=== PATIENT | male | born 1995 | race African-American/Black ===

== ENCOUNTER 2020-09-30 05:34 | Emergency (ER) | payer BC, SELFPAY ==
--- NOTE | ~2020-09-30 | XR_ITS ---
EXAMINATION: XR ANKLE, RIGHT CLINICAL INFORMATION: Ankle pain COMPARISON: None TECHNIQUE: AP, lateral, and mortise views of the right ankle. FINDINGS: There is an oblique fracture of the distal fibular diaphysis; inferior extent of the fracture line is at the level of the tibial plafond. There is slight lateral and posterior displacement of the distal fragment. There is mild widening of the medial clear space. Possible nondisplaced posterior malleolus fracture in the lateral view. There is prominent lateral soft tissue swelling. XR/XR ankle RT min 3V IMPRESSION: Slightly displaced oblique fracture of the distal fibular diaphysis. Mild widening of the medial clear space suggesting ligamentous injury. Questionable nondisplaced posterior malleolus fracture. Prominent lateral soft tissue swelling.
[2020-09-30 05:58] VITALS: BP 137/74; PULSE 79; RESP 16; O2SAT 99; BMI 26.7
--- NOTE | 2020-09-30 06:18 | ED.LOWEXIN ---
HPI - Extremity Injury (Lower) General Chief Complaint: Extremity Injury, Lower Stated Complaint: foot pain Time Seen by Provider: 09/30/20 06:15 History of Present Illness HPI Narrative: Patient is 25 years old patient twisted his right ankle. Complaining of pain localized to the lateral aspect of the ankle. Denies any head injury. No nausea no vomiting. No systemic complaints. Patient from home. Related Data Previous Rx's Medication Instructions Recorded ibuprofen 400 mg PO Q6H PRN #20 tab 09/30/20 oxycodone 5 mg PO Q8H PRN #7 tab 09/30/20 Allergies Allergy/AdvReac Type Severity Reaction Status Date / Time No Known Allergies Allergy Unverified 01/06/20 18:42 Review of Systems Review of Systems: Constitutional: No Weight loss, No Fever, No Chills, No Night Sweats, No Fatigue, No Malaise ENT/Mouth: No Hearing loss, No Ear Pain, No Nasal Congestion, No Sinus Pain, No Hoarseness, No sore throat, No Rhinorrhea, No Swallowing Difficulty Eyes: No Eye Pain, No Swelling, No Redness, No Foreign Body, No Discharge, No Vision Changes Cardiovascular: No Chest Pain, No SOB, No Dyspnea on Exertion, No Orthopnea, No Edema, No Palpitations Respiratory: No Cough, No Sputum, No Wheezing, No Smoke Exposure, No Dyspnea Gastrointestinal: No Nausea, No Vomiting, No Diarrhea, No Constipation, No abdominal Pain, No Hematochezia, No Melena Genitourinary: no irregular bleeding, No Dysuria, No Urinary Frequency, No Hematuria, No Urinary Incontinence, No Urgency, No Flank Pain, No Urinary Flow Changes, No Hesitancy Musculoskeletal: Positive pain to the right ankle Skin: No Skin Lesions, No rash Neuro: No Weakness, No Numbness, No Paresthesias, No Loss of Consciousness, No Dizziness, No Headache Psych: No Anxiety/Panic, No Depression, No SI/HI/AH/VH, No Social Issues, Heme/Lymph: No Bruising, No Bleeding,No Lymphadenopathy Endocrine: No Polyuria, No Polydipsia, No Temperature Intolerance [facility] Past Medical History Medical History No active medical problems Social History Social History Alcohol intake: unknown Patient Tobacco Use Status: Tobacco use Unknown Use of substances other than those prescribed or required for medical reasons: No Advance Directives: No Physical Exam Vital Signs: Vital Signs: Last Vital Signs Pulse 79 09/30/20 05:58 Resp 16 09/30/20 05:58 BP 137/74 09/30/20 05:58 Pulse Ox 99 09/30/20 05:58 Body Mass Index 26.7 Appearance: Alert. Oriented X3. No acute distress. Eyes: Pupils equal, round and reactive to light. ENT: Pharynx normal. Neck: Normal inspection. Neck supple. No lymph nodes noted. No crepitus CVS: Normal heart rate and rhythm. Pulses normal. Normal S1 and S2 Respiratory: No respiratory distress. Breath sounds normal. No Wheezing. No rales Abdomen: Soft and nontender. No rigidity. No distention. good BS x4 Skin: Skin warm and dry. Normal skin color. Normal skin turgor. Extremities: No lower extremity edema. Neurovascular intact to all extremities. No Lacerations. No Rash. Left ankle there is swelling over the lateral malleolus. Tenderness to touch in that area. There is no swelling over the medial malleolus. There is no tenderness on palpation at the base of the 5th metatarsal. Pulses at dorsalis pedis was intact. There is good movement of the digits. There is small abrasions over the lateral aspect of the ankle. The joint is closed. Otherwise the skin is intact. Neuro: Oriented X 3. No motor deficit. No sensory deficit. Moving all extermities. No slurred speech MDM - Extremity Injury (Lower) MDM Narrative Medical decision making narrative: X-ray of the ankle showed a distal fibula fracture. The mortise was intact. We will place patient in a boot. Crutches for comfort. Follow up in the orthopedic clinic. Will give patient Motrin for pain. Ice. Currently in stable condition with discharge home. Differential Diagnosis Differential diagnosis: Likely ankle sprain and strain, acute internal derangement of knee, fracture of femur, fracture of hip and ankle fracture Medical Records Attestation: I reviewed the patient's medical records. Lab Data Attestation: I reviewed the patient's lab results. Discharge Plan Discharge Clinical Impression: Ankle fracture Patient Disposition: Home, Self-Care Instructions: Ankle Fracture (ED) Prescriptions: New ibuprofen 400 mg tablet 400 mg PO Q6H PRN (Reason: pain) Qty: 20 RF: 0 oxycodone 5 mg tablet 5 mg PO Q8H PRN (Reason: pain) Qty: 7 RF: 0 Referrals: Cesar Dash MD [Physician] - 2 days
== END 2020-09-30 06:45 | disposition home or self-care (01) ==
PROVIDERS: Emergency Provider Emergency Medicine Emergency Medical Services
DX: S82.431A Displaced oblique fracture of shaft of right fibula, initial encounter for closed fracture (principal); X50.1XXA Overexertion from prolonged static or awkward postures, initial encounter; Y93.89 Activity, other specified; Y92.9 Unspecified place or not applicable; Y99.9 Unspecified external cause status
CPT/HCPCS: 73610; 99283; 99284

== ENCOUNTER → 2020-10-03 10:04 | Outpatient (BNVA) | payer BC, SELFPAY | PROVIDERS: Visit Provider Physician Assistant ==

== ENCOUNTER 2020-10-10 09:07 | Outpatient (REF) | payer BC, SELFPAY ==
--- NOTE | ~2020-10-10 | XR_ITS ---
EXAMINATION: XR ANKLE, RIGHT CLINICAL INFORMATION: Trauma, pain COMPARISON: None TECHNIQUE: AP, lateral, and mortise views of the right ankle. FINDINGS: There is oblique fracture lateral malleolus with mild lateral displacement distal fragment. The ankle mortise is symmetric. The medial and posterior malleolus appear intact. Short cortical cleft is present at the plafond medial to midline. Ankle joint shows no narrowing or erosive change. Subtalar joint unremarkable. Base fifth metatarsal appears intact. XR/XR ankle RT min 3V IMPRESSION: Fracture lateral malleolus.
== END 2020-10-10 09:08 | disposition home or self-care (01) ==
LOC: HO.XRAY 09:07
PROVIDERS: Visit Provider Physician Assistant
DX: S82.831A Other fracture of upper and lower end of right fibula, initial encounter for closed fracture (principal)
CPT/HCPCS: 73610

== ENCOUNTER 2020-10-17 08:09 | Outpatient (REF) | payer BC, SELFPAY ==
--- NOTE | ~2020-10-17 | XR_ITS ---
EXAMINATION: XR ANKLE, RIGHT CLINICAL INFORMATION: Follow-up fracture. COMPARISON: Right ankle 10/10/2020 TECHNIQUE: AP, lateral, and mortise views of the right ankle. FINDINGS: There is an oblique fracture distal fibula with moderate soft tissue swelling. The ankle mortise and subtalar joints are normal. No additional fractures seen. XR/XR ankle RT min 3V IMPRESSION: Oblique minimally displaced lateral malleolar fracture with moderate lateral malleolar soft tissue swelling. The fracture is stable compared to 10/10/2020 exam.
== END 2020-10-17 08:10 | disposition home or self-care (01) ==
LOC: HO.HOSX 08:09
PROVIDERS: Visit Provider Physician Assistant
DX: S82.831A Other fracture of upper and lower end of right fibula, initial encounter for closed fracture (principal)
CPT/HCPCS: 73610

== ENCOUNTER 2020-11-07 11:35 | Outpatient (REF) | payer BC, SELFPAY ==
--- NOTE | ~2020-11-07 | XR_ITS ---
EXAMINATION: XR ANKLE, RIGHT CLINICAL INFORMATION: Ankle fracture COMPARISON: 10/17/2020, 10/10/2020 and 09/30/2020 TECHNIQUE: AP, lateral, and mortise views of the right ankle. FINDINGS: Again seen is an oblique fracture involving the lateral malleolus. Since the original films on 09/30/2020, soft tissue swelling has decreased but significant fracture fragment healing has not occurred. XR/XR ankle RT min 3V IMPRESSION: Decrease in soft tissue swelling but the oblique fracture of the distal fibula remains without significant healing.
== END 2020-11-07 11:36 | disposition home or self-care (01) ==
LOC: HO.HOSX 11:35
PROVIDERS: Visit Provider Physician Assistant
DX: S82.831A Other fracture of upper and lower end of right fibula, initial encounter for closed fracture (principal)
CPT/HCPCS: 73610

== ENCOUNTER 2020-12-05 07:50 | Outpatient (REF) | payer BC, SELFPAY ==
--- NOTE | ~2020-12-05 | XR_ITS ---
EXAMINATION: XR ANKLE, RIGHT CLINICAL INFORMATION: Fracture. COMPARISON: Right ankle radiographs dated 11/07/2020. TECHNIQUE: AP, lateral, and mortise views of the right ankle. FINDINGS: Distal fibular fracture with minimal improvement of anatomic alignment. No dislocation. The ankle mortise is maintained. No osseous erosion. No abnormal soft tissue calcification. XR/XR ankle RT min 3V IMPRESSION: Distal fibular fracture with minimal interval improvement in anatomic alignment.
== END 2020-12-05 07:51 | disposition home or self-care (01) ==
LOC: HO.HOSX 07:50
PROVIDERS: Visit Provider Physician Assistant
DX: S82.61XD Displaced fracture of lateral malleolus of right fibula, subsequent encounter for closed fracture with routine healing (principal)
CPT/HCPCS: 73610

== ENCOUNTER 2021-01-02 07:19 | Outpatient (REF) | payer BC, SELFPAY ==
--- NOTE | ~2021-01-02 | XR_ITS ---
EXAMINATION: XR ANKLE, RIGHT CLINICAL INFORMATION: Ankle fracture COMPARISON: None TECHNIQUE: AP, lateral, and mortise views of the right ankle. FINDINGS: Previously documented distal right fibular fracture appear unchanged. No radiographic evidence of any callus formation. No new abnormalities. Soft tissues are unremarkable. XR/XR ankle RT min 3V IMPRESSION: Stable radiographic appearance of the distal right fibular fracture, unchanged since 12/05/2020.
== END 2021-01-02 07:20 | disposition home or self-care (01) ==
LOC: HO.HOSX 07:19
PROVIDERS: Visit Provider Physician Assistant
DX: S82.831D Other fracture of upper and lower end of right fibula, subsequent encounter for closed fracture with routine healing (principal)
CPT/HCPCS: 73610